=== PATIENT | female | born 1965 | race Caucasian/White ===

== ENCOUNTER 2017-09-09 17:07 | Emergency (ER) | payer OTHER ==
[~2017-09-09] VITALS: Ht 167.6 cm; Wt 74.8 kg
[2017-09-09] MEDS ORDERED: SIMVASTATIN5 MG (17:19)
[2017-09-09] MEDS ORDERED: ZOLOFT25 MG (17:19)
[2017-09-09] MEDS ORDERED: XANAX0.25 MG (17:19)
[2017-09-09] MEDS ORDERED: TOPROL XL25 M1 (17:19)
== END 2017-09-09 20:31 | disposition home or self-care (01) ==
LOC: ER 17:07
DX: S86.812A Strain of other muscle(s) and tendon(s) at lower leg level, left leg, initial encounter (principal); X50.0XXA Overexertion from strenuous movement or load, initial encounter; Y93.89 Activity, other specified; Y92.89 Other specified places as the place of occurrence of the external cause; Y99.8 Other external cause status